=== PATIENT | female | born 1930 | race Two or more races ===

== ENCOUNTER → 2017-09-10 | Day surgery (SDC) | payer MEDICARE, MEDICAID ==
[~2017-09-10] VITALS: Ht 152.4 cm; Wt 83.9 kg
[2017-09-10] VITALS (9 sets, daily range): BP systolic 144–175; BP diastolic 67–89
[~2017-09-10] MED LIST: ASPIR 8181 MG ORAL; Akten 3.5% 1ml Btl ONE; Atropine Inj 1mg/10ml Syr IV PRN; BRIMONIDINE TART5 ML BOTH EYES; BSS 15ml BTL ONE; BSS 500ml btl ONE; Bupivacaine 0.75% 30ml vial INJ ONE; COSOPT1 DRO2 BOTH EYES; Carbachol 0.01% Op Soln 1.5ml vial ONE; Ciprofloxacin Opth Soln 2.5ml ONE; Cyclopentolate 1% Opth Sol 2ml ONE; Dexamethasone 4mg/ml vial ONE; DiphenhydrAMINE 50mg/ml Inj IVP PRN; EPINEPHrine 1mg/1ml Amp ONE; LR 1000ml 1,000 ML IVLG SCH; LR 1000ml ONE; Lidocaine 1% MPF 10mg/ml 5ml ONE; Lidocaine 2% MPF 5ml Vial INJ ONE; Lidocaine 4% Amp ONE; Maxitrol Opth Oint 3.5gm ONE; Midazolam 2mg/2ml Inj IVP PRN; NKM; NS Irrig 1000ml ONE; PREDNISOLONE ACE5 ML BOTH EYES; Phenylephrine 10% Opth Soln 5ml ONE; Povidone-Iodine 5% opth solution ONE; Pred Forte 1% Opth Susp 1ml ONE; Pred Forte 1% Opth Susp 1ml RIGHT EYE ONE; Propofol 200mg/20ml IV ONE; Sodium Hyaluronate 10 mg/ml 0.85ml ONE; Sterile Water Irrig 1000ml IRRIG ONE; Tetracaine 0.5% Opth 4ml Soln ONE; fentaNYL 100 mcg/2 mL IV PRN
--- NOTE | 2017-09-10 07:27 | Pre-Procedure Note/Attestation ---
Pre-Procedure Note/Attestation Complete Prior to Procedure Planned Procedure: right - Removal of cataract and placement of intraocular lens, right eye Attestation I attest that I discussed the nature of the procedure; its benefits; risks and complications; and alternatives (and the risks and benefits of such alternatives ), prior to the procedure, with the patient (or the patient's legal customer assistance representative). I attest that, if there was a reasonable possibility of needing a blood transfusion, the patient (or the patient's legal customer assistance representative) was given the [facility] standardized written summary, pursuant to the [place] Blood Safety Act ([place] Health and Safety Code # 1645, as amended). I attest that I re-evaluated the patient just prior to the surgery and that there has been no change in the patient's H&P, except as documented below: Jamison Nevarez MD Sep 10, 2017 07:27
[2017-09-10] MEDS: Ciprofloxacin Opth Soln 2.5ml RIGHT EYE SCH ×3 (10:40→10:59)
[2017-09-10] MEDS: Phenylephrine 10% Opth Soln 5ml RIGHT EYE SCH ×3 (10:41→10:59)
[2017-09-10] MEDS: Akten 3.5% 1ml Btl RIGHT EYE SCH ×3 (10:42→10:59)
[2017-09-10] MEDS: Cyclopentolate 1% Opth Sol 2ml RIGHT EYE SCH ×3 (10:42→10:59)
--- NOTE | 2017-09-10 13:47 | Anethesia Preoperative Eval ---
Anesthesia Pre-op PMH/ROS General Date of Evaluation: Sep 10, 2017 Time of Evaluation: 13:34 Anesthesiologist: sky ASA Score: ASA 3 Mallampati Score Class I : Soft palate, uvula, fauces, pillars visible Class II: Soft palate, uvula, fauces visible Class III: Soft palate, base of uvula visible Class IV: Only hard plate visible Mallampati Classification: Class II Surgeon: flory Diagnosis: cataract right eye Surgical Procedure: cataract removal right eye Anesthesia History: none Social History: smoking - nonsmoker Family History: no anesthesia problems Allergies: Coded Allergies: No Known Allergies (Verified Allergy, Mild, 12/05/06) Medications: see eMAR Past Medical History HEENT: Reports: cataract (L), cataract (R) Musculoskeletal/Integumentary: Reports: OA Other: obesity Anesthesia Pre-op Phys. Exam Physician Exam Last Vital Signs Date Time Temp Pulse Resp B/P (MAP) Pulse Ox O2 Delivery O2 Flow Rate FiO2 09/10/17 10:44 98.0 79 18 144/74 97 Room Air Constitutional: NAD Neurologic: CN 2-12 intact Cardiovascular: RRR Respiratory: CTA Gastrointestinal: S/NT/ND Airway Exam Mallampati Score: Class II MO: full Neck: supple TMD: 2b ROM: limited Anesthesia Pre-op A/P Risk Assessment & Plan Assessment: asa3 Plan: mac Status Change Before Surgery: No Pre-Antibiotics Drug: MANUEL Hall Sep 10, 2017 13:47
--- NOTE | 2017-09-10 15:21 | Brief Operative Note ---
Immediate Post Operative Note Operative Note Pre-op Diagnosis: Dense white cataract, right eye Procedure: Phaco PC IOL, OD Use of Malyugian ring 7.0 Post-op Diagnosis: same as pre-op Surgeon: Aditya Nevarez MD Anesthesia: MAC Specimen: none Complications: none Fluids: minimal Estimated Blood Loss: minimal Implant(s) used?: Yes - zcb00 9.0 Jamison Nevarez MD Sep 10, 2017 15:21
--- NOTE | 2017-09-12 17:01 | Operative Note - Dictated ---
DATE OF OPERATION: 09/10/2017 SURGEON: Jamison Nevarez M.D. MULTIPLE COIL WINDER SURGEON: None. ANESTHESIOLOGIST: Bing Apodaca M.D. PREOPERATIVE DIAGNOSES: 1. Dense white cataract, right eye. 2. Miotic pupil, right eye. POSTOPERATIVE DIAGNOSES: 1. Dense white cataract, right eye. 2. Miotic pupil, right eye. PROCEDURES: 1. Phacoemulsification of cataract, right eye. 2. Placement of posterior chamber intraocular lens, right eye (model ZCB00, power 9.0). 3. Use of Malyugin ring, right eye (7.0 mm). 4. Use of VisionBlue for capsular staining, right eye. SPECIMENS: None. COMPLICATIONS: None. INDICATIONS FOR SURGERY: The patient has had a longstanding dense white cataract in the right eye. The patient understands the risks of surgery including infection, bleeding, need for further surgery, loss of vision, no improvement in vision, loss of the eye, loss of life, glaucoma, retinal detachment, and understands these risks and elects to proceed with surgery. FINDINGS: The patient has a very dense cataract in the right eye. In addition, she had right miotic pupil that dilated no more than 5 mm. There was minimal red reflex and VisionBlue was necessary in order to do the capsulorrhexis. OPERATIVE NOTE: After informed consent was obtained, the patient was brought into the operating room and placed in supine position. Cardiac and respiratory monitors were attached. Time-out was performed and all criteria were met and everyone in the room agreed. Local sedation was induced and a retrobulbar block followed by modified Van Lint block were given using 50:50 mix of 0.75% Marcaine and 1% lidocaine. The right eye was then draped and prepped in a sterile manner for ocular surgery. A lid speculum was placed in the eye. The patient was still able to turn her globe nasally so a superior rectus stay suture was placed using a 7-0 silk suture. A 1% lidocaine preservative-free was injected at approximately 9 o'clock limbus. A conjunctival peritomy from approximately 8:30 to 12:30 was made and dissected posteriorly. This was done in preparation for possible extracapsular cataract extraction if necessary. A limbal incision was also made from approximately 9 o'clock to 12:30 but it was only dissected anteriorly from approximately 8:30 to 9:30 and again this was all done in preparation for possible extracapsular cataract extraction, because of the dense nature of the cataract. The anterior chamber was then entered using a keratome at approximately 12 o'clock and Shugarcaine was injected into the anterior chamber followed by an air bubble. VisionBlue was injected into the anterior chamber and the anterior capsule was stained. This was then irrigated free. Healon was then injected into the anterior chamber. The anterior chamber was then entered using a 2.6 mm keratome at the limbal incision at approximately 9 o'clock. Healon was then injected into the anterior chamber and Malyugin ring was then also injected and placed at 4 points along the pupillary margin. Anterior capsulorrhexis was then performed. Hydrodissection and hydrodelineation was attempted but this was a very dense cataract. It was able to be moved and rotated. The lens was then phacoemulsified using divide and conquer four-quadrant technique. The nuclei were phacoemulsified. There was virtually no epinucleus. Inspiration and aspiration from remaining cortical material was then done without complications. Healon was then injected into the anterior chamber and capsular bag. The lens was taken from its package, placed into the cartridge and the tip of the cartridge was placed through the limbal incision. Lens was injected into the capsular bag and centered nicely with a Sinskey hook. The optic and both haptics were noted to be in the capsular bag. The lens was rotated so that it was in the 3 o'clock to 9 o'clock meridian and again both haptics and optic were in the capsular bag. This was visualized. Healon was then injected into the anterior chamber and capsular bag. The Malyugin ring was then removed without difficulty. Healon was then aspirated from the anterior chamber and capsular bag and Miostat was injected into the anterior chamber and the pupil constricted nicely. One 10-0 nylon interrupted suture was then placed through the limbal incision. The knot was rotated and buried. The wound was checked and found to be slightly Osmar positive and another 10-0 nylon interrupted suture was placed in the wound and that knot was rotated and buried also. The wound was checked again and found to be watertight. The paracentesis was hydrated closed. This was also checked and found to be watertight. The silk suture was then removed. The lid speculum and drapes were removed from the eye. The conjunctiva was previously closed with forceps cautery. After lid speculum and drapes were removed from the eye, drops of Pred Forte and moxifloxacin were applied to the eye followed by Maxitrol ointment and a shield. The patient tolerated the procedure well and left the operating room awake, alert, and in stable condition. The patient was noted to have a good lid function actually at the end of the case. Jamison Nevarez M.D. DR: Bianka JOB#: [id number] CC:
== END | disposition home or self-care (01) ==
LOC: SUR 09:58
DX: H26.9 Unspecified cataract (principal); H57.03 Miosis; M19.90 Unspecified osteoarthritis, unspecified site
CPT/HCPCS: 66982; J0171; J1100; J2704; J3490; J7120; V2632; 94003; 94150